=== PATIENT | female | born 1965 | race African-American/Black ===

== ENCOUNTER 2018-07-16 14:15 | Emergency (ER) | payer OTHER ==
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
[2018-07-16] MEDS ORDERED: ACETAMINOPHEN 1000 MG/100 ML VIAL (NON FORMULARY) IVPB ONE (14:21)
[2018-07-16 14:26] VITALS: BP 148/92; PULSE 75; TEMP 98.4; BMI 32.7
[2018-07-16] MEDS ORDERED: ACETAMINOPHEN INJECTION 100 ML IVPB ONE (14:54)
[2018-07-16 14:58] LABS: BASO % 2.8 % (0-2.0); EOS % 1.1 % (0-4.5); HEMATOCRIT 34.5 % (32.4-45.2); HEMOGLOBIN 11.2 GM/dl (10.7-15.3); LYMPH % 43.7 % (8-40); MCHC 32.4 g/dl (32.0-36.0); MEAN CELL VOLUME 89.4 fl (80-96); MEAN PLT VOLUME 8.2 fl (7.5-11.1); MONO % 18.3 % (3.8-10.2); NEUT % 34.1 % (42.8-82.8); PLATELET COUNT 243 K/MM3 (134-434); RBC 3.86 M/mm3 (3.60-5.2); RDW 13.3 % (11.6-15.6); WHITE BLOOD COUNT 2.6 K/mm3 (4.0-10.8)
[2018-07-16] MEDS ORDERED: SODIUM CHLORIDE 1,000 ML IV STA (15:02)
[2018-07-16 15:08] LABS: URINE APPEARANCE Clear; URINE BILIRUBIN Negative (NEGATIVE); URINE COLOR Yellow; URINE GLUCOSE (UA) Negative (NEGATIVE); URINE KETONE Negative (NEGATIVE); URINE LEUK ESTERASE Negative (NEGATIVE); URINE NITRITE Negative (NEGATIVE); URINE PROTEIN Negative (NEGATIVE); URINE UROBILINOGEN 0.2 (0.2-1.0)
[2018-07-16 15:15] LABS: HCG,QUALITATIVE URINE Negative
[2018-07-16 15:52] LABS: ALBUMIN 3.8 g/dl (3.5-5.0); ALK PHOS 73 U/L (32-92); ANION GAP 8 MMOL/L (8-16); BILIRUBIN,TOTAL 0.5 mg/dl (0.2-1.0); BLOOD UREA NITROGEN 12 mg/dl (7-18); CALCIUM 8.4 mg/dl (8.4-10.2); CHLORIDE 104 mmol/L (98-107); CO2 26 mmol/L (22-28); CREATININE 0.7 mg/dl (0.6-1.3); GLUCOSE,RANDOM 87 mg/dl (74-106); POTASSIUM 3.9 mmol/L (3.5-5.1); SGOT/AST 21 U/L (10-42); SGPT/ALT 20 U/L (10-40); SODIUM 138 mmol/L (136-145); TOT PROT 7.4 g/dl (6.4-8.3)
== END 2018-07-16 18:05 | disposition home or self-care (01) ==
LOC: FER 14:15
PROC: 3E033NZ Introduction of Analgesics, Hypnotics, Sedatives into Peripheral Vein, Percutaneous Approach (ICD-10-PCS; principal; 2018-07-16)
PROC: 3E0337Z Introduction of Electrolytic and Water Balance Substance into Peripheral Vein, Percutaneous Approach (ICD-10-PCS; 2018-07-16)
DX: S39.91XA Unspecified injury of abdomen, initial encounter (principal); R10.32 Left lower quadrant pain; W50.1XXA Accidental kick by another person, initial encounter; Y93.89 Activity, other specified; Y92.129 Unspecified place in nursing home as the place of occurrence of the external cause; Y99.0 Civilian activity done for income or pay
CPT/HCPCS: 36415; 74177-TC; 80053; 81003; 84703; 85025; 87086; 99284-25; J0131; J7030